=== PATIENT | male | born 1965 | race Caucasian/White ===

== ENCOUNTER → 2019-09-12 | Outpatient (CLI) | payer OTHER ==
--- NOTE | 2019-09-12 08:58 | US ---
EXAMINATION TYPE: US abdomen limited DATE OF EXAM: 09/12/2019 COMPARISON: NONE CLINICAL HISTORY: R94.5 Abnormal results of liver function studies. Patient denies taking medication. EXAM MEASUREMENTS: Liver Length: 16.8 cm Gallbladder Wall: 0.1 cm CBD: 0.58 cm Right Kidney: 9.7 x 7.6 x 4 cm Pancreas: mid and tail obscured by overlying bowel gas Liver: hyperechoic to right renal cortex, attenuated posteriorly, and vessels are limitedly seen all suggesting fatty liver. This limits evaluation for hepatic masses. Gallbladder: wnl Evidence for sonographic Gaines's sign: no CBD: upper limits of normal Right Kidney: No hydronephrosis or masses seen IMPRESSION: 1. Sonographic findings most commonly related to hepatic steatosis. Correlate with liver function douglas t results. 2. Upper limits of normal size of the common bile duct however no sonographic evidence of acute stephen cystitis is seen.
== END | disposition home or self-care (01) ==
LOC: RADUSWWP 08:20
PROVIDERS: ATTEND Family Medicine
DX: R94.5 Abnormal results of liver function studies (principal)
CPT/HCPCS: 76705

== ENCOUNTER 2020-12-19 07:22 | Day surgery (SDC) | payer OTHER ==
[2020-12-18 15:36] VITALS: BMI 28.8
[~2020-12-19 07:22] MED LIST: DEXAMETHASONE SOD PHOSPHATE 4 MG/ML 1 ML VIAL IV PRN; FAMOTIDINE 20 MG/2 ML VIAL IV PRN; ONDANSETRON 4 MG/2 ML VIAL IVP PRN; OXYMETAZOLINE 0.05% NASL SPRAY 1 SPRAY BOTTLE EA NOSTRIL PRN
[2020-12-19] MEDS ORDERED: LACTATED RINGERS 1,000 ML IV ONE (08:00)
[2020-12-19] MEDS ORDERED: DEXAMETHASONE SOD PHOSPHATE 4 MG/ML 1 ML VIAL IVP ONE (08:11)
[2020-12-19] MEDS ORDERED: MIDAZOLAM 2 MG/2 ML VIAL IVP ONE (08:13)
[2020-12-19] MEDS ORDERED: PROPOFOL 10 MG/ML 20 ML VIAL IV ONE (08:34)
[2020-12-19] MEDS ORDERED: DEXAMETHASONE SOD PHOSPHATE 10 MG/ML 1 ML VIAL ONE (08:34)
[2020-12-19] MEDS ORDERED: SUCCINYLCHOLINE CHLORIDE 100 MG/5 ML SYR IV ONE (08:34)
[2020-12-19] MEDS ORDERED: MIDAZOLAM 2 MG/2 ML VIAL ONE (08:34)
[2020-12-19] MEDS ORDERED: GLYCOPYRROLATE 0.2 MG/ML 2 ML VIAL ONE (08:34)
[2020-12-19] MEDS ORDERED: ONDANSETRON 4 MG/2 ML VIAL ONE (08:34)
[2020-12-19] MEDS ORDERED: fentaNYL (PF) 50 MCG/ML 2 ML AMP ONE (08:34)
[2020-12-19] MEDS ORDERED: LIDOCAINE 1% INJ 10MG/ML (20 ML MDV) ONE (08:34)
[2020-12-19] MEDS ORDERED: LIDOCAINE 1%-EPI 1:100,000 20 ML VIAL SQ ONE ×2 (08:46)
[2020-12-19] MEDS ORDERED: BACITRACIN ZINC 500 UNIT/GM OINT 28.4 GM TUBE TOPICAL ONE ×2 (08:52→08:57)
--- NOTE | 2020-12-19 09:15 | P.OP ---
Date of Procedure: 12/19/20 Preoperative Diagnosis: Deviated nasal septum Inferior turbinate hypertrophy Postoperative Diagnosis: Same Procedure(s) Performed: Septoplasty Outfracture and submucous resection of the inferior turbinates Anesthesia: ANNALEEA Surgeon: Miguel Fontanez Estimated Blood Loss (ml): 2 Pathology: other (Nasal septal bone and cartilage) Condition: stable Disposition: PACU Indications for Procedure: Is a 55-year-old white male whose had difficulties with chronic nasal airway obstruction on the left for many years without seasonal fluctuation Operative Findings: Septum deviated to the left obstructing approximately 90% of the nasal airway with inferior turbinate hypertrophy bilateral also which was moderate Description of Procedure: DESCRIPTION OF PROCEDURE: The patient was brought to the operative suite, placed in the supine position. The patient underwent induction of general anesthesia with oral endotracheal intubation without difficulty. The patient was prepped and draped in the usual aseptic fashion. 1% lidocaine with 1:100,000 epinephrine was infused submucosally on both sides of the nasal septum. While this was taking vasoconstrictive effect, the inferior turbinates were infractured with a [place] elevator. Partial submucous resection of the inferior turbinates was performed with Coblation device ablating a portion of the submucosal soft tissue. The inferior turbinates were then outfractured with a [place] elevator. A left hemitransfixion incision was then made through the mucoperichondrial. Mucoperiosteal flap on the left elevated. Bony cartilaginous junction was disarticulated and mucoperiosteal flap on the right was elevated. Bony nasoseptal deformity were removed with Suzanne forceps and an inferior cartilaginous strip was removed, leaving a full 1.5 cm caudal strut. Checking intranasally, this corrected the nasal septal deformities and the hemitransfixion incision was closed with running 4-0 chromic suture. The bilateral Wagner airway splints coated in bacitracin ointment were placed in the nasal cavities and sutured transseptally with 4-0 nylon suture. The patient was then suctioned in an orogastric fashion. The patient was allowed to emerge from general anesthesia, having tolerated the procedure well and was extubated in the operating suite, transferred to postoperative recovery area in satisfactory condition.
[2020-12-19 09:33] VITALS: TEMP 96.9
[2020-12-19 09:46] VITALS: RESP 16
[2020-12-19] MEDS ORDERED: HYDROcodone/APAP 5-325MG 1 EACH TAB ONE (10:21)
[2020-12-19] MEDS ORDERED: HYDROcodone/APAP 5-325MG 1 EACH TAB PO ONE (10:22)
[2020-12-19] MEDS ORDERED: HYDROmorphone 0.5 MG/0.5 ML SYRINGE IVP ONE ×2 (11:00→11:18)
[2020-12-19] MEDS ORDERED: hydrALAZINE HCL 20 MG/ML 1 ML VIAL ONE (11:11)
[2020-12-19] MEDS ORDERED: hydrALAZINE HCL 20 MG/ML 1 ML VIAL IV ONE (11:18)
[2020-12-19 11:44] VITALS: BP 143/88; PULSE 55
== END 2020-12-19 12:06 | disposition home or self-care (01) ==
LOC: OR 07:22
PROVIDERS: ATTEND Otolaryngology
DX: J34.2 Deviated nasal septum (principal); J34.3 Hypertrophy of nasal turbinates; Z83.3 Family history of diabetes mellitus; Z80.3 Family history of malignant neoplasm of breast; Z87.891 Personal history of nicotine dependence; Z90.89 Acquired absence of other organs
CPT/HCPCS: 88300; 30520; 30140; J2250; J0360; J1100 ×2; J2405; J0690; J2001; J3010; J0330; J2704; J1170